=== PATIENT | male | born 1950 | race Two or more races ===

== ENCOUNTER 2017-05-21 22:52 | Emergency (ER) | payer MEDICAID ==
[2017-05-21 22:54] VITALS: BP 198/94; PULSE 76; RESP 16; TEMP 98.3; O2SAT 98
== END 2017-05-21 23:07 | disposition left against medical advice (07) ==
LOC: NED 22:52
DX: H92.09 Otalgia, unspecified ear (principal)
CPT/HCPCS: 99281